=== PATIENT | female | born 1980 | race Two or more races ===

== ENCOUNTER 2020-05-03 15:01 | Emergency (ER) | payer MEDICAID ==
[~2020-05-03] VITALS: Ht 160 cm; Wt 63.5 kg
[~2020-05-03 15:01] MED LIST: NO HOME MEDS; OMEPRAZOLE40 MG PO; RANITIDINE HCL150 MG PO; REGLAN10 MG ORAL
[2020-05-03 15:03] VITALS: BP 137/71
[2020-05-03] MEDS ORDERED: Tylenol #3 tab (300mg/30mg) ORAL ONE (15:15)
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
--- NOTE | 2020-05-03 15:35 | Diagnostic Imaging Report ---
EXAM: CT Head Without Intravenous Contrast CLINICAL HISTORY: PAIN TECHNIQUE: Axial computed tomography images of the head/brain without intravenous contrast. CTDI is 53 mGy and DLP is 963 mGy-cm. One or more of the following dose reduction techniques were used: automated exposure control, adjustment of the mA and/or kV according to patient size, use of iterative reconstruction technique. COMPARISON: No relevant prior studies available. FINDINGS: Brain: Unremarkable. No hemorrhage. No significant white matter disease. No edema. Ventricles: Unremarkable. No ventriculomegaly. Bones/joints: Unremarkable. No acute fracture. Soft tissues: Unremarkable. Sinuses: Unremarkable as visualized. No acute sinusitis. Mastoid air cells: Unremarkable as visualized. No mastoid effusion. IMPRESSION: Unremarkable head/brain CT.
--- NOTE | 2020-05-03 15:36 | Diagnostic Imaging Report ---
EXAM: CT Cervical Spine Without Intravenous Contrast CLINICAL HISTORY: PAIN TECHNIQUE: Axial computed tomography images of the cervical spine without intravenous contrast. CTDI is 20.2 mGy and DLP is 457.7 mGy-cm. One or more of the following dose reduction techniques were used: automated exposure control, adjustment of the mA and/or kV according to patient size, use of iterative reconstruction technique. Coronal and sagittal reformatted images were created and reviewed. Axial reformatted images were created and reviewed. COMPARISON: No relevant prior studies available. FINDINGS: Vertebrae: Kyphosis of the cervical spine could represent muscle spasm or patient positioning. No acute fracture. Discs/spinal canal/neural foramina: No acute findings. No spinal canal stenosis. Soft tissues: Unremarkable. IMPRESSION: 1. No acute traumatic injury. 2. Kyphosis of the cervical spine could represent muscle spasm or patient positioning.
--- NOTE | 2020-05-03 15:57 | Diagnostic Imaging Report ---
EXAM: XR Right Wrist Complete, 3 or More Views CLINICAL HISTORY: PAIN TECHNIQUE: Frontal, lateral and oblique views of the right wrist. COMPARISON: No relevant prior studies available. FINDINGS: Bones/joints: Negative ulnar variance 0.4-0.5 cm, which could be incidental or could be seen with chronic ulnar-sided wrist pain. No acute fracture. No dislocation. Soft tissues: Unremarkable. No radiopaque foreign body. Tubes, lines and devices: Pulse oximetry device seen overlying the hand. IMPRESSION: 1. No acute abnormality definitively identified to account for patient presentation. 2. Negative ulnar variance 0.4-0.5 cm, which could be incidental or could be seen with chronic ulnar-sided wrist pain. 3. Otherwise unremarkable study. 4. Pulse oximetry device seen overlying the hand.
--- NOTE | 2020-05-03 15:58 | Diagnostic Imaging Report ---
EXAM: XR Left Elbow Complete, 3 or More Views CLINICAL HISTORY: PAIN TECHNIQUE: Frontal, lateral and oblique views of the left elbow. COMPARISON: No relevant prior studies available. FINDINGS: Bones/joints: Unremarkable. No acute fracture. No dislocation. Soft tissues: Unremarkable. IMPRESSION: Unremarkable study.
--- NOTE | 2020-05-03 15:59 | Diagnostic Imaging Report ---
EXAM: XR Right Elbow Complete, 3 or More Views CLINICAL HISTORY: PAIN TECHNIQUE: Frontal, lateral and oblique views of the right elbow. COMPARISON: No relevant prior studies available. FINDINGS: Bones/joints: Unremarkable. No acute fracture. No dislocation. Soft tissues: Unremarkable. IMPRESSION: Unremarkable study.
--- NOTE | 2020-05-03 16:00 | Diagnostic Imaging Report ---
EXAM: XR Left Wrist Complete, 3 or More Views CLINICAL HISTORY: PAIN TECHNIQUE: Frontal, lateral and oblique views of the left wrist. COMPARISON: No relevant prior studies available. FINDINGS: Bones/joints: Unremarkable. No acute fracture. No dislocation. Soft tissues: Unremarkable. No radiopaque foreign body. IMPRESSION: Unremarkable study.
[2020-05-03] MEDS ORDERED: TYLENOL EXTRA500 MG ORAL (16:07)
[2020-05-03 16:31] VITALS: BP 128/87
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
--- NOTE | 2020-05-04 14:51 | Cardiology Report ---
APPROVED REPORT EKG Measurement Heart [id number] <Conclusion> Normal sinus rhythm Normal ECG
== END 2020-05-03 16:33 | disposition home or self-care (01) ==
LOC: EDBD 15:01 → EMR 15:46
DX: R51.9 Headache, unspecified (principal); M54.2 Cervicalgia; M79.602 Pain in left arm; M79.601 Pain in right arm; W19.XXXA Unspecified fall, initial encounter; Y92.9 Unspecified place or not applicable; M25.532 Pain in left wrist; M25.531 Pain in right wrist; M25.522 Pain in left elbow; M25.521 Pain in right elbow; M40.202 Unspecified kyphosis, cervical region
CPT/HCPCS: 70450; 72125; 73080; 73110; 93005; Z7502; 99284